=== PATIENT | female | born 1995 | race Caucasian/White ===

== ENCOUNTER 2017-01-01 21:34 | Emergency (ER) | payer OTHER ==
[~2017-01-01] VITALS: Ht 149.9 cm; Wt 79.4 kg
[~2017-01-01 21:34] MED LIST: IBUP60TA PO; LORT5TAB PO; MOTR200T44 PO; PERCOCET PO
[2017-01-01 23:41] VITALS: BP 129/66
== END 2017-01-01 23:42 | disposition home or self-care (01) ==
LOC: M ED 22:33
DX: J02.8 Acute pharyngitis due to other specified organisms (principal); F17.200 Nicotine dependence, unspecified, uncomplicated; Z88.1 Allergy status to other antibiotic agents

== ENCOUNTER 2017-05-02 09:11 | Emergency (ER) | payer OTHER ==
[~2017-05-02] VITALS: Ht 149.9 cm; Wt 84.1 kg
[2017-05-02 10:11] LABS: BASO # 0.1 K/mm3 (0.0-0.2); BASO % 1.2 % (0.0-1.0); EOS # 0.2 K/mm3 (0.0-0.50); EOS % 2.4 % (0.0-3.0); LARGE UNSTAINED CELL # 0.1 K/mm3 (0.0-0.4); LARGE UNSTAINED CELL % 1.6 % (0.0-4.0); LYMPH # 2.1 K/mm3 (1.5-6.5); LYMPH % 24.9 % (24.0-44.0); MEAN CORPUSCULAR HEMOGLOBIN 30.3 pg (27.0-33.0); MEAN CORPUSCULAR HGB CONC 34.1 g/dl (32.0-36.5); MEAN CORPUSCULAR VOLUME 88.7 fl (80.0-96.0); MONO # 0.5 K/mm3 (0.0-0.8); NEUTROPHILS # 5.1 K/mm3 (1.8-7.7); NEUTROPHILS % 63.9 % (36.0-66.0); PLATELET COUNT, AUTOMATED 266 k/mm3 (150-450); RED CELL DISTRIBUTION WIDTH 13.3 % (11.5-14.5)
[2017-05-02 10:17] LABS: CONTROL LINE HCG INT CTR LINE PRESENT
[2017-05-02] MEDS ORDERED: NS 500 ML IV ONE (11:15)
--- NOTE | 2017-05-02 12:51 | REP ---
Clinical: Early with vaginal bleeding. Technique: Transabdominal and transvaginal first trimester obstetrical ultrasound with color Doppler evaluation. Findings: Bladder measures 9.1 x 7.9 x 4.3 cm and appears normal. Normal anteverted uterus measures 11.1 x 5.1 x 5.9 cm. Endometrial complex measures 4.8 mm thickness and no intrauterine is identified. Incidental left intramural fibroid measures 1.2 x 0.9 x 1.2 cm. The bilateral maternal ovaries are normal in appearance and vascularity without torsion. Right ovary measures 2.9 x 2.1 x 1.8 cm with 1.4 cm involuting cyst; RI 0.46. Left ovary measures 2.4 x 1.7 x 2.5 cm; RI 0.66. Trace pelvic free fluid is nonspecific. Impression: Normal appearance to the uterus and endometrium (incidental 1.2 cm fibroid) without evidence for intrauterine . Differential diagnosis includes early , missed , and less likely ectopic . Correlation with serial HCG levels recommended. Signed by Freddie Liang MD 05/02/2017 12:42 P
[2017-05-02 14:45] VITALS: BP 128/74
== END 2017-05-02 14:47 | disposition home or self-care (01) ==
LOC: M ED 09:11
DX: N93.9 Abnormal uterine and vaginal bleeding, unspecified (principal); D25.9 Leiomyoma of uterus, unspecified; Z32.01 Encounter for pregnancy test, result positive

== ENCOUNTER → 2017-05-04 | Outpatient (CLI) | payer OTHER | LOC: M LAB 12:12 | PROVIDERS: ATTEND Emergency Medicine | DX: N93.9 Abnormal uterine and vaginal bleeding, unspecified (principal) ==

== ENCOUNTER 2017-06-08 10:41 | Emergency (ER) | payer OTHER ==
[~2017-06-08] VITALS: Ht 149.9 cm; Wt 80.0 kg
[2017-06-08 10:42] VITALS: BP 155/85
== END 2017-06-08 11:31 | disposition left against medical advice (07) ==
LOC: M ED 10:41
DX: K08.89 Other specified disorders of teeth and supporting structures (principal); Z53.29 Procedure and treatment not carried out because of patient's decision for other reasons

== ENCOUNTER → 2018-03-07 | Outpatient (CLI) | payer OTHER ==
[2018-03-07 19:24] LABS: BASO # 0.1 10^3/uL (0.0-0.2); BASO % 0.7 % (0.0-1.0); EOS # 0.1 10^3/uL (0.0-0.50); EOS % 1.1 % (0.0-3.0); HEMATOCRIT 35.5 % (36.0-47.0); HEMOGLOBIN 11.4 g/dl (12.0-15.5); IMMATURE GRANULOCYTE % 0.2 % (0-3.0); LYMPH # 2.1 10^3/uL (1.5-6.5); LYMPH % 21.8 % (24.0-44.0); MEAN CORPUSCULAR HEMOGLOBIN 28.4 pg (27.0-33.0); MEAN CORPUSCULAR HGB CONC 32.1 g/dl (32.0-36.5); MEAN CORPUSCULAR VOLUME 88.5 fl (80.0-96.0); MONO # 0.7 10^3/uL (0.0-0.8); MONO % 6.7 % (0.0-5.0); NEUTROPHILS # 6.7 10^3/uL (1.8-7.7); NEUTROPHILS % 69.5 % (36.0-66.0); PLATELET COUNT, AUTOMATED 270 10^3/uL (150-450); RED BLOOD COUNT 4.01 10^6/uL (4.00-5.40); RED CELL DISTRIBUTION WIDTH 15.4 % (11.5-14.5); WHITE BLOOD COUNT 9.7 10^3/uL (4.0-10.0)
[2018-03-08 12:44] LABS: CHLAMYDIA DNA AMPLIFICATION NEGATIVE (NEGATIVE); GC DNA AMPLIFICATION NEGATIVE (NEGATIVE)
[2018-03-09 10:26] LABS: RUBELLA IgG QUALITATIVE IMMUNE (IMMUNE)
[2018-03-09 10:41] LABS: HBsAg Prenatal NEGATIVE (NEGATIVE)
[2018-03-09 10:55] LABS: HEPATITIS C VIRUS ABY INDEX < 0.0 INDEX (<0.8)
[2018-03-09 10:56] LABS: HIV 1&2 SCREEN CENTAUR NEGATIVE (NEGATIVE)
== END ==
LOC: M SMT 11:31
DX: Z34.81 Encounter for supervision of other normal pregnancy, first trimester (principal); Z3A.09 9 weeks gestation of pregnancy
CPT/HCPCS: 86762

== ENCOUNTER 2018-05-07 18:58 | Emergency (ER) | payer OTHER ==
[2018-05-07] MEDS: PENICILLIN V POTASSIUM 500 MG TAB PO (19:45)
[2018-05-07] MEDS: OXYCODONE/APAP 5MG/325MG(BULK FOR ED) 1 TABLET PO (19:45)
== END 2018-05-07 19:50 | disposition home or self-care (01) ==
LOC: M ED 18:58
DX: O99.89 Other specified diseases and conditions complicating pregnancy, childbirth and the puerperium (principal); K04.7 Periapical abscess without sinus; K02.9 Dental caries, unspecified; Z88.1 Allergy status to other antibiotic agents; Z3A.00 Weeks of gestation of pregnancy not specified
CPT/HCPCS: 99283

== ENCOUNTER → 2018-05-19 | Outpatient (CLI) | payer OTHER | LOC: M RAD 10:01 | DX: Z34.82 Encounter for supervision of other normal pregnancy, second trimester (principal) | CPT/HCPCS: 76811 ==

== ENCOUNTER → 2018-06-03 | Outpatient (CLI) | payer OTHER | LOC: M SMT 12:06 | DX: O28.5 Abnormal chromosomal and genetic finding on antenatal screening of mother (principal) | CPT/HCPCS: 36415 ==

== ENCOUNTER → 2018-07-29 | Outpatient (CLI) | payer OTHER, SELFPAY ==
[2018-07-29 14:12] LABS: BASO # 0.1 10^3/uL (0.0-0.2); BASO % 0.5 % (0.0-1.0); EOS # 0.1 10^3/uL (0.0-0.50); EOS % 0.9 % (0.0-3.0); HEMATOCRIT 30.6 % (36.0-47.0); HEMOGLOBIN 10.1 g/dl (12.0-15.5); IMMATURE GRANULOCYTE % 1.4 % (0-3.0); LYMPH # 2.1 10^3/uL (1.5-6.5); LYMPH % 19.4 % (24.0-44.0); MEAN CORPUSCULAR HEMOGLOBIN 32.1 pg (27.0-33.0); MEAN CORPUSCULAR VOLUME 97.1 fl (80.0-96.0); MONO # 0.9 10^3/uL (0.0-0.8); MONO % 7.8 % (0.0-5.0); NEUTROPHILS # 7.7 10^3/uL (1.8-7.7); PLATELET COUNT, AUTOMATED 196 10^3/uL (150-450); RED BLOOD COUNT 3.15 10^6/uL (4.00-5.40)
[2018-07-29 14:19] LABS: GLUCOSE CHALLENGE TEST 1 HOUR 97 MG/DL (LESS THAN 140)
== END ==
LOC: M SMT 10:36
DX: Z34.83 Encounter for supervision of other normal pregnancy, third trimester (principal); Z36.89 Encounter for other specified antenatal screening
CPT/HCPCS: 82950

== ENCOUNTER 2018-08-07 14:24 | Outpatient (CLI) | payer OTHER ==
[2018-08-07 16:13] LABS: APPEARANCE, URINE HAZY (CLEAR); BACTERIA, URINE AUTO 2+ (NEGATIVE); BILIRUBIN, URINE AUTO NEGATIVE (NEGATIVE); BLOOD, URINE BLOOD NEGATIVE (NEGATIVE); COLOR, URINE STRAW (YELLOW); GLUCOSE, URINE (UA) AUTO NEGATIVE (NEGATIVE); KETONE, URINE AUTO TRACE mg/dL (NEGATIVE); LEUKOCYTE ESTERASE, URINE AUTO 3+ (NEGATIVE); NITRITE, URINE AUTO NEGATIVE (NEGATIVE); PROTEIN, URINE AUTO NEGATIVE (NEGATIVE); RBC, URINE AUTO 1 /HPF (0-3); SPECIFIC GRAVITY URINE AUTO 1.005 (1.002-1.035); SQUAMOUS EPITHELIAL CELL UR AU 5 /HPF (0-6); UROBILINOGEN, URINE AUTO 0.2 mg/dL (0.0-2.0); WBC, URINE AUTO 38 /HPF (0-3)
[2018-08-07] MEDS: TERCONAZOLE-7 VAGINAL CREAM PV (17:00)
[2018-08-07] MEDS: metroNIDAZOLE (FLAGYL) 500 MG TAB PO (17:06)
[2018-08-07 17:35] LABS: CHLAMYDIA DNA AMPLIFICATION NEGATIVE (NEGATIVE); GC DNA AMPLIFICATION NEGATIVE (NEGATIVE)
== END 2018-08-07 18:24 | disposition home or self-care (01) ==
LOC: M LDO 14:24
DX: O47.03 False labor before 37 completed weeks of gestation, third trimester (principal); O23.599 Infection of other part of genital tract in pregnancy, unspecified trimester; O35 Maternal care for known or suspected fetal abnormality and damage; Z3A.31 31 weeks gestation of pregnancy
CPT/HCPCS: 59025

== ENCOUNTER → 2018-09-13 | Outpatient (REF) | payer MEDICAID, OTHER, SELFPAY | LOC: M LAB REF 17:24 | DX: Z36.89 Encounter for other specified antenatal screening (principal) | CPT/HCPCS: 87081 ==

== ENCOUNTER 2018-10-03 06:35 | Inpatient (IN) | payer SELFPAY, OTHER ==
[2018-10-03] MEDS: LR 1,000 ML IV ×3 (06:45→14:45)
[2018-10-03] MEDS ORDERED: OXYTOCIN INJ 10 UNITS/ML VIAL (J2590) As Ordered ×2 (07:17)
[2018-10-03] MEDS ORDERED: MORPHINE PRES-FREE INJ 10 MG/10 ML VIAL (J2274) As Ordered (07:20)
[2018-10-03 07:26] LABS: HEMATOCRIT 30.9 % (36.0-47.0); HEMOGLOBIN 10.1 g/dl (12.0-15.5); MEAN CORPUSCULAR HEMOGLOBIN 29.7 pg (27.0-33.0); MEAN CORPUSCULAR HGB CONC 32.7 g/dl (32.0-36.5); MEAN CORPUSCULAR VOLUME 90.9 fl (80.0-96.0); PLATELET COUNT, AUTOMATED 210 10^3/uL (150-450); RED CELL DISTRIBUTION WIDTH 13.6 % (11.5-14.5); WHITE BLOOD COUNT 9.3 10^3/uL (4.0-10.0)
[2018-10-03] MEDS: BICITRA 30ML SOLN UDC PO (07:31)
[2018-10-03] MEDS ORDERED: ONDANSETRON 4MG/2ML VIAL (J2405) IV ×3 (07:45→09:45)
[2018-10-03] MEDS ORDERED: NALBUPHINE HCL 10 MG/ML AMP (J2300) IV (07:45)
[2018-10-03] MEDS ORDERED: NALOXONE INJ 0.4 MG/1 ML VIAL (J2310) IV ×2 (07:45)
[2018-10-03] MEDS ORDERED: ePHEDrine SULFATE 25 MG/5 ML(5MG/ML) SYRINGE As Ordered (07:56)
[2018-10-03] MEDS ORDERED: ONDANSETRON 4MG/2ML VIAL (J2405) As Ordered (08:17)
[2018-10-03] MEDS: DOCUSATE SODIUM 100 MG CAP PO ×2 (09:00→20:09)
[2018-10-03] MEDS: PRENATAL VITAMINS CHEWABLE TABLET PO (09:00)
[2018-10-03] MEDS ORDERED: OXYTOCIN 30 UNITS IN 0.9% NaCl 500ML IV BAG (J2590) As Ordered (09:14)
[2018-10-03] MEDS ORDERED: ANUSOL HC CREAM 30GM TOP (09:15)
[2018-10-03] MEDS ORDERED: DOCUSATE SODIUM 100 MG CAP PO (09:15)
[2018-10-03] MEDS ORDERED: MOM 30ML SUSPENSION UDC PO (09:15)
[2018-10-03] MEDS ORDERED: METOCLOPRAMIDE INJ 10MG/2ML VIAL (J2765) IV (09:45)
[2018-10-03] MEDS ORDERED: MEPERIDINE INJ 25 MG/ML VIAL (J2175) IV (09:45)
[2018-10-03] MEDS ORDERED: fentaNYL 100 MCG/2 ML INJECTION (J3010) IV (09:45)
[2018-10-03] MEDS ORDERED: NALBUPHINE HCL 10 MG/ML AMP (J2300) As Ordered (09:51)
[2018-10-03] MEDS: NALBUPHINE HCL 10 MG/ML AMP (J2300) IV (09:53)
[2018-10-03] MEDS ORDERED: KETOROLAC 30 MG/ML VIAL (J1885) As Ordered (10:17)
[2018-10-03] MEDS: KETOROLAC 30 MG/ML VIAL (J1885) IV ×3 (10:21→22:10)
[2018-10-03] MEDS: OXYTOCIN DRIP 30 UNITS in APPROPRIATE DILUENT 1 EA IV (10:29)
[2018-10-03] MEDS: MEASLES,MUMPS,RUBELLA VACCINE INJ (MMR-II) (90707) SC (11:15)
[2018-10-03] MEDS: METOCLOPRAMIDE INJ 10MG/2ML VIAL (J2765) IV ×2 (13:08→23:11)
[2018-10-04] MEDS: KETOROLAC 30 MG/ML VIAL (J1885) IV (03:46)
[2018-10-04] MEDS: LR 1,000 ML IV (04:41)
[2018-10-04 07:05] LABS: HEMATOCRIT 26.9 % (36.0-47.0); HEMOGLOBIN 8.5 g/dl (12.0-15.5); MEAN CORPUSCULAR HEMOGLOBIN 29.5 pg (27.0-33.0); MEAN CORPUSCULAR HGB CONC 31.6 g/dl (32.0-36.5); MEAN CORPUSCULAR VOLUME 93.4 fl (80.0-96.0); PLATELET COUNT, AUTOMATED 142 10^3/uL (150-450); RED BLOOD COUNT 2.88 10^6/uL (4.00-5.40); RED CELL DISTRIBUTION WIDTH 13.3 % (11.5-14.5); WHITE BLOOD COUNT 10.6 10^3/uL (4.0-10.0)
[2018-10-04] MEDS: DOCUSATE SODIUM 100 MG CAP PO ×2 (07:57→19:50)
[2018-10-04] MEDS: PRENATAL VITAMINS CHEWABLE TABLET PO (07:57)
[2018-10-04] MEDS: PERCOCET 5MG/325MG TAB PO ×3 (08:00→20:11)
[2018-10-04] MEDS: IBUPROFEN 800 MG TAB PO ×2 (11:51→19:50)
[2018-10-05] MEDS: PERCOCET 5MG/325MG TAB PO ×6 (00:13→23:14)
[2018-10-05] MEDS: IBUPROFEN 800 MG TAB PO ×3 (04:22→20:33)
[2018-10-05] MEDS: PRENATAL VITAMINS CHEWABLE TABLET PO (08:07)
[2018-10-05] MEDS: DOCUSATE SODIUM 100 MG CAP PO ×2 (08:07→20:34)
[2018-10-05] MEDS: SIMETHICONE 80 MG CHEW TAB PO ×4 (08:07→20:34)
[2018-10-05] MEDS ORDERED: PILL CRUSHER/CUTTER 1 EACH XX (20:45)
[2018-10-06] MEDS: IBUPROFEN 800 MG TAB PO ×3 (03:59→19:37)
[2018-10-06] MEDS: PERCOCET 5MG/325MG TAB PO ×3 (07:31→21:22)
[2018-10-06] MEDS: SIMETHICONE 80 MG CHEW TAB PO ×3 (08:19→19:37)
[2018-10-06] MEDS: PRENATAL VITAMINS CHEWABLE TABLET PO (08:19)
[2018-10-06] MEDS: DOCUSATE SODIUM 100 MG CAP PO ×2 (08:19→19:36)
[2018-10-06] MEDS ORDERED: DOCUSATE SODIUM 100 MG CAP PO (19:00)
[2018-10-06] MEDS ORDERED: ANUSOL HC CREAM 30GM TOP (19:00)
[2018-10-06] MEDS ORDERED: MOM 30ML SUSPENSION UDC PO (19:00)
[2018-10-06] MEDS ORDERED: PERCOCET 5MG/325MG TAB PO (19:00)
[2018-10-06] MEDS ORDERED: MEASLES,MUMPS,RUBELLA VACCINE INJ (MMR-II) (90707) SC (19:00)
[2018-10-06] MEDS ORDERED: PILL CRUSHER/CUTTER 1 EACH XX (19:00)
[2018-10-06] MEDS ORDERED: ONDANSETRON 4MG/2ML VIAL (J2405) IV (19:00)
[2018-10-07] MEDS: IBUPROFEN 800 MG TAB PO ×2 (03:21→09:50)
[2018-10-07] MEDS: PRENATAL VITAMINS CHEWABLE TABLET PO (09:50)
[2018-10-07] MEDS: SIMETHICONE 80 MG CHEW TAB PO (09:50)
[2018-10-07] MEDS: DOCUSATE SODIUM 100 MG CAP PO (09:50)
== END 2018-10-07 09:50 | disposition home or self-care (01) | DRG 540 ==
LOC: M LDI 06:35 → M OBS 11:09
PROVIDERS: Obstetrics & Gynecology
PROC: 10D00Z1 Extraction of Products of Conception, Low, Open Approach (ICD-10-PCS; principal; 2018-10-03 07:30)
DX: O34.211 Maternal care for low transverse scar from previous cesarean delivery (principal); Z37.0 Single live birth; Z3A.39 39 weeks gestation of pregnancy

== ENCOUNTER 2019-03-19 21:13 | Emergency (ER) | payer MEDICAID ==
[~2019-03-19] VITALS: Ht 149.9 cm; Wt 80.9 kg
[2019-03-19 21:13] VITALS: BP 141/85
[~2019-03-19 21:13] MED LIST changes: +COLA100C5 PO; +IBUP600T42 PO; -IBUP60TA PO; +IBUP80TA PO; +OXYC1TAB23 PO; +PENI500T PO; +PERC5TAB12 PO; +PRENTAB45 PO; +TYLE500T78 PO
[2019-03-19] MEDS ORDERED: MOBI4TAB PO (22:38)
[2019-03-19] MEDS ORDERED: KETOROLAC TROMETHAMINE 10 MG TAB PO ONE (22:45)
--- NOTE | 2019-03-20 09:00 | REP ---
Clinical: Trauma. Technique: AP, lateral, bilateral oblique views right wrist. Findings: The carpal bones, surrounding osseous structures, soft tissues, and joint spaces are normal. There is no evidence for acute fracture or dislocation. No subcutaneous emphysema or radiodense foreign body. Impression: Normal wrist series. No acute fracture or dislocation Electronically Signed by Freddie Liang MD 03/20/2019 08:52 A
== END 2019-03-19 22:57 | disposition home or self-care (01) ==
LOC: M ED 21:13
DX: M77.8 Other enthesopathies, not elsewhere classified (principal); Z88.1 Allergy status to other antibiotic agents

== ENCOUNTER → 2019-06-07 | Outpatient (REF) | payer MEDICAID, MEDICARE ==
[~2019-06-07] MED LIST changes: +MOBI4TAB PO
[2019-06-07 14:56] LABS: BASO # 0.1 10^3/uL (0.0-0.2); EOS # 0.2 10^3/uL (0.0-0.50); EOS % 2.7 % (0.0-3.0); HEMATOCRIT 35.1 % (36.0-47.0); LYMPH # 2.5 10^3/uL (1.5-6.5); LYMPH % 35.9 % (24.0-44.0); MEAN CORPUSCULAR HEMOGLOBIN 27.2 pg (27.0-33.0); MEAN CORPUSCULAR HGB CONC 31.3 g/dl (32.0-36.5); MEAN CORPUSCULAR VOLUME 86.9 fl (80.0-96.0); MONO # 0.6 10^3/uL (0.0-0.8); MONO % 8.5 % (0.0-5.0); NEUTROPHILS # 3.6 10^3/uL (1.8-7.7); NEUTROPHILS % 51.6 % (36.0-66.0); PLATELET COUNT, AUTOMATED 313 10^3/uL (150-450); RED BLOOD COUNT 4.04 10^6/uL (4.00-5.40)
[2019-06-07 15:08] LABS: ALBUMIN 3.4 GM/DL (3.2-5.2); ALT/SGPT 17 U/L (12-78); BILIRUBIN,TOTAL 0.2 MG/DL (0.2-1.0); BLOOD UREA NITROGEN 9 MG/DL (7-18); CALCIUM LEVEL 8.4 MG/DL (8.5-10.1); CARBON DIOXIDE LEVEL 23 MEQ/L (21-32); CHLORIDE LEVEL 108 MEQ/L (98-107); CHOLESTEROL LEVEL 207 MG/DL (<200); CHOLESTEROL RISK RATIO 5.175 (<5); FERRITIN 4 NG/ML (8-252); FREE T4 0.81 NG/DL (0.76-1.46); GLOMERULAR FILTRATION RATE > 60.0 (>60); GLUCOSE, FASTING 90 MG/DL (70-100); HDL CHOLESTEROL 40 MG/DL (>40); IRON (FE) 29 UG/DL (50-170); LDL CHOLESTEROL 138 MG/DL (<100); NON-HDL-C 167 MG/DL; POTASSIUM SERUM 4.2 MEQ/L (3.5-5.1); SODIUM LEVEL 140 MEQ/L (136-145); THYROID STIMULATING HORMONE 0.819 uIU/ML (0.358-3.740); TOTAL PROTEIN 6.4 GM/DL (6.4-8.2); TRIGLYCERIDES LEVEL 145 MG/DL (<150)
[2019-06-07 15:37] LABS: HEMOGLOBIN A1c 5.5 %
== END ==
LOC: M LAB REF 12:19
PROVIDERS: ATTEND Nurse Practitioner Family
DX: Z00.00 Encounter for general adult medical examination without abnormal findings (principal); Z83.2 Family history of diseases of the blood and blood-forming organs and certain disorders involving the immune mechanism

== ENCOUNTER 2019-07-23 23:04 | Emergency (ER) | payer MEDICAID, MEDICARE, OTHER ==
[~2019-07-23] VITALS: Ht 149.9 cm; Wt 83.2 kg
[2019-07-23 23:04] VITALS: BP 144/88
[2019-07-23] MEDS ORDERED: PYRI1TAB5 PO (23:30)
[2019-07-23] MEDS ORDERED: PHENAZOPYRIDINE 100 MG TAB PO ONE (23:30)
[2019-07-23] MEDS ORDERED: NITROFURANTOIN (MACROBID) 100 MG CAP PO ONE (23:30)
[2019-07-23] MEDS ORDERED: MACR100C43 PO (23:30)
== END 2019-07-23 23:38 | disposition home or self-care (01) ==
LOC: M ED 23:04
DX: N30.00 Acute cystitis without hematuria (principal); Z88.0 Allergy status to penicillin

== ENCOUNTER 2019-11-22 10:03 | Emergency (ER) | payer MEDICAID, OTHER ==
[~2019-11-22] VITALS: Ht 149.9 cm; Wt 82.0 kg
[~2019-11-22 10:03] MED LIST changes: +MACR100C43 PO; +PYRI1TAB5 PO
[2019-11-22] MEDS ORDERED: ACET-683 PO (10:10)
[2019-11-22] MEDS ORDERED: LIDOCAINE 5% (LIDODERM) PATCH TD ONE (10:30)
[2019-11-22] MEDS ORDERED: ACETAMINOPHEN 500 MG TAB PO ONE (10:30)
[2019-11-22] MEDS ORDERED: CYCLOBENZAPRINE 10 MG TAB PO ONE (10:30)
[2019-11-22] MEDS ORDERED: IBUPROFEN 800 MG TAB PO ONE (10:30)
[2019-11-22] MEDS ORDERED: CYCL10TA PO (11:53)
[2019-11-22 12:04] VITALS: BP 135/71
[2019-11-22] MEDS ORDERED: LIDO5TD TOP (12:18)
[2019-11-22] MEDS ORDERED: **NOTE PATIENT COMMENT** MISC XX SCH (21:00)
== END 2019-11-22 12:23 | disposition home or self-care (01) ==
LOC: M ED 10:03
DX: S29.012A Strain of muscle and tendon of back wall of thorax, initial encounter (principal); W18.2XXA Fall in (into) shower or empty bathtub, initial encounter; Y92.091 Bathroom in other non-institutional residence as the place of occurrence of the external cause; Z88.1 Allergy status to other antibiotic agents

== ENCOUNTER 2019-12-17 22:02 | Emergency (ER) | payer OTHER ==
[~2019-12-17] VITALS: Ht 149.9 cm; Wt 82.2 kg
[~2019-12-17 22:02] MED LIST changes: +ACET-683 PO; +CYCL10TA PO; +LIDO5TD TOP
[2019-12-17 22:36] LABS: URINE PREG TEST NEGATIVE (NEGATIVE)
[2019-12-17 22:41] LABS: APPEARANCE, URINE HAZY (CLEAR); BACTERIA, URINE AUTO NEGATIVE (NEGATIVE); BILIRUBIN, URINE AUTO NEGATIVE (NEGATIVE); BLOOD, URINE BLOOD NEGATIVE (NEGATIVE); COLOR, URINE YELLOW (YELLOW); GLUCOSE, URINE (UA) AUTO NEGATIVE (NEGATIVE); KETONE, URINE AUTO NEGATIVE (NEGATIVE); LEUKOCYTE ESTERASE, URINE AUTO 1+ (NEGATIVE); MUCUS, URINE SMALL (NEGATIVE); NITRITE, URINE AUTO NEGATIVE (NEGATIVE); PROTEIN, URINE AUTO NEGATIVE (NEGATIVE); RBC, URINE AUTO 1 /HPF (0-3); SPECIFIC GRAVITY URINE AUTO 1.018 (1.002-1.035); SQUAMOUS EPITHELIAL CELL UR AU 4 /HPF (0-6); UROBILINOGEN, URINE AUTO 0.2 mg/dL (0.0-2.0); WBC, URINE AUTO 4 /HPF (0-3)
[2019-12-18 00:14] LABS: CHLAMYDIA DNA AMPLIFICATION POSITIVE (NEGATIVE); GC DNA AMPLIFICATION NEGATIVE (NEGATIVE)
[2019-12-18] MEDS ORDERED: DOXY100C37 PO (01:21)
[2019-12-18] MEDS ORDERED: DOXYCYCLINE HYCLATE 100 MG TAB PO ONE (01:30)
[2019-12-18 01:31] VITALS: BP 128/80
[2019-12-18 10:14] LABS: HEPATITIS B SURFACE ANTIBODY NEGATIVE (POSITIVE); HEPATITIS B SURFACE ANTIGEN NEGATIVE (NEGATIVE); HEPATITIS C VIRUS ABY INDEX < 0.0 INDEX (<0.8); HIV 1&2 SCREEN CENTAUR NEGATIVE (NEGATIVE)
[2019-12-21 08:06] LABS: HSV-1 DNA Negative (Negative); HSV-2 DNA Negative (Negative)
== END 2019-12-18 01:46 | disposition home or self-care (01) ==
LOC: M ED 22:02
DX: Z20.2 Contact with and (suspected) exposure to infections with a predominantly sexual mode of transmission (principal); A56.8 Sexually transmitted chlamydial infection of other sites; Z88.1 Allergy status to other antibiotic agents

== ENCOUNTER → 2020-04-18 | Outpatient (REF) | payer OTHER ==
[~2020-04-18] MED LIST changes: +CYCL-707 PO; -CYCL10TA PO; +DOXY100C37 PO
[2020-04-18 13:42] LABS: BASO # 0.1 10^3/uL (0.0-0.2); BASO % 0.9 % (0.0-1.0); EOS # 0.2 10^3/uL (0.0-0.5); EOS % 2.2 % (0.0-3.0); HEMATOCRIT 34.7 % (36.0-47.0); HEMOGLOBIN 10.9 g/dl (12.0-15.5); LYMPH % 29.8 % (24.0-44.0); MEAN CORPUSCULAR HEMOGLOBIN 27.9 pg (27.0-33.0); MEAN CORPUSCULAR HGB CONC 31.4 g/dl (32.0-36.5); MONO # 0.6 10^3/uL (0.0-0.8); MONO % 8.7 % (0.0-5.0); PLATELET COUNT, AUTOMATED 277 10^3/uL (150-450); WHITE BLOOD COUNT 6.8 10^3/uL (4.0-10.0)
[2020-04-18 13:57] LABS: ALBUMIN 3.4 GM/DL (3.2-5.2); ALT/SGPT 15 U/L (12-78); BILIRUBIN,TOTAL 0.3 MG/DL (0.2-1.0); BLOOD UREA NITROGEN 10 MG/DL (7-18); CALCIUM LEVEL 8.4 MG/DL (8.5-10.1); CARBON DIOXIDE LEVEL 25 MEQ/L (21-32); CHLORIDE LEVEL 109 MEQ/L (98-107); CHOLESTEROL LEVEL 214 MG/DL (<200); CREATININE FOR GFR 0.66 MG/DL (0.55-1.30); FREE T4 0.93 NG/DL (0.76-1.46); GLOMERULAR FILTRATION RATE > 60.0 (>60); GLUCOSE, FASTING 88 MG/DL (70-100); HDL CHOLESTEROL 40 MG/DL (>40); LDL CHOLESTEROL 150 MG/DL (<100); NON-HDL-C 174 MG/DL; POTASSIUM SERUM 4.1 MEQ/L (3.5-5.1); SODIUM LEVEL 141 MEQ/L (136-145); THYROID STIMULATING HORMONE 0.989 uIU/ML (0.358-3.740); TOTAL PROTEIN 6.7 GM/DL (6.4-8.2); TRIGLYCERIDES LEVEL 122 MG/DL (<150)
[2020-04-18 13:58] LABS: TOTAL 25(OH) VITAMIN D 25.8 NG/ML (30.0-100.0)
[2020-04-18 15:26] LABS: HEMOGLOBIN A1c 5.1 %
== END ==
LOC: M LAB REF 13:25
PROVIDERS: ATTEND Nurse Practitioner Family
DX: Z13.9 Encounter for screening, unspecified (principal); F41.8 Other specified anxiety disorders; G43.909 Migraine, unspecified, not intractable, without status migrainosus; D50.9 Iron deficiency anemia, unspecified

== ENCOUNTER → 2020-04-22 | Outpatient (REF) | payer OTHER ==
[2020-04-22 16:46] LABS: BASO # 0.1 10^3/uL (0.0-0.2); BASO % 0.9 % (0.0-1.0); EOS # 0.1 10^3/uL (0.0-0.5); EOS % 1.4 % (0.0-3.0); HEMATOCRIT 35.3 % (36.0-47.0); HEMOGLOBIN 11.1 g/dl (12.0-15.5); LYMPH % 31.4 % (24.0-44.0); MEAN CORPUSCULAR HGB CONC 31.4 g/dl (32.0-36.5); MEAN CORPUSCULAR VOLUME 89.1 fl (80.0-96.0); MONO # 0.6 10^3/uL (0.0-0.8); MONO % 8.6 % (0.0-5.0); NEUTROPHILS # 3.7 10^3/uL (1.5-8.5); NEUTROPHILS % 57.4 % (36.0-66.0); PLATELET COUNT, AUTOMATED 319 10^3/uL (150-450); RED BLOOD COUNT 3.96 10^6/uL (4.00-5.40); WHITE BLOOD COUNT 6.4 10^3/uL (4.0-10.0)
[2020-04-22 16:59] LABS: FOLATE 16.5 NG/ML (>5.4)
== END ==
LOC: M LAB REF 16:21
PROVIDERS: ATTEND Nurse Practitioner Family
DX: Z13.9 Encounter for screening, unspecified (principal); D50.9 Iron deficiency anemia, unspecified; D64.89 Other specified anemias

== ENCOUNTER → 2020-07-15 | Outpatient (REF) | payer OTHER, MEDICAID ==
[~2020-07-15] MED LIST changes: +FERR1TAB8 PO; +FLUO20CA22 PO
[2020-07-15 13:46] LABS: BASO # 0.1 10^3/uL (0.0-0.2); BASO % 1.2 % (0.0-1.0); EOS # 0.1 10^3/uL (0.0-0.5); EOS % 1.7 % (0.0-3.0); HEMATOCRIT 35.9 % (36.0-47.0); HEMOGLOBIN 11.5 g/dl (12.0-15.5); LYMPH # 1.9 10^3/uL (1.5-5.0); LYMPH % 26.9 % (24.0-44.0); MEAN CORPUSCULAR VOLUME 90.4 fl (80.0-96.0); MONO # 0.7 10^3/uL (0.0-0.8); MONO % 9.7 % (0.0-5.0); NEUTROPHILS # 4.2 10^3/uL (1.5-8.5); NEUTROPHILS % 60.2 % (36.0-66.0); PLATELET COUNT, AUTOMATED 288 10^3/uL (150-450); RED BLOOD COUNT 3.97 10^6/uL (4.00-5.40); WHITE BLOOD COUNT 6.9 10^3/uL (4.0-10.0)
[2020-07-15 14:34] LABS: ALBUMIN 3.4 GM/DL (3.2-5.2); ALT/SGPT 16 U/L (12-78); BILIRUBIN,TOTAL 0.4 MG/DL (0.2-1.0); BLOOD UREA NITROGEN 12 MG/DL (7-18); CALCIUM LEVEL 8.4 MG/DL (8.5-10.1); CARBON DIOXIDE LEVEL 25 MEQ/L (21-32); CHLORIDE LEVEL 108 MEQ/L (98-107); CHOLESTEROL LEVEL 225 MG/DL (<200); CHOLESTEROL RISK RATIO 5.113 (<5); CREATININE FOR GFR 0.59 MG/DL (0.55-1.30); FERRITIN 6 NG/ML (8-252); GLOMERULAR FILTRATION RATE > 60.0 (>60); GLUCOSE, FASTING 85 MG/DL (70-100); HDL CHOLESTEROL 44 MG/DL (>40); IRON (FE) 49 UG/DL (50-170); LDL CHOLESTEROL 163 MG/DL (<100); NON-HDL-C 181 MG/DL; POTASSIUM SERUM 4.1 MEQ/L (3.5-5.1); SODIUM LEVEL 137 MEQ/L (136-145); TOTAL PROTEIN 6.6 GM/DL (6.4-8.2); TRIGLYCERIDES LEVEL 91 MG/DL (<150)
== END ==
LOC: M LAB REF 12:48
PROVIDERS: ATTEND Nurse Practitioner Family
DX: D64.89 Other specified anemias (principal); Z13.9 Encounter for screening, unspecified; F41.8 Other specified anxiety disorders; D50.9 Iron deficiency anemia, unspecified; E78.5 Hyperlipidemia, unspecified

== ENCOUNTER 2020-09-04 16:00 | Emergency (ER) | payer OTHER, MEDICAID ==
[~2020-09-04] VITALS: Ht 149.9 cm; Wt 86.8 kg
[~2020-09-04 16:00] MED LIST changes: -FERR1TAB8 PO; -FLUO20CA22 PO
[2020-09-04] MEDS ORDERED: FERR1TAB8 PO (16:14)
[2020-09-04] MEDS ORDERED: FLUO20CA22 PO (16:14)
--- NOTE | 2020-09-04 18:12 | REPVR ---
PROCEDURE INFORMATION: Exam: US Duplex Right Lower Extremity Veins, Limited Exam date and time: 09/04/2020 5:53 PM Age: 25 years old Clinical indication: Pain; Leg, upper; Right; Additional info: Pain with walking R/O dvt TECHNIQUE: Imaging protocol: Real-time Duplex ultrasound of the Right Lower Extremity with 2-D bates scale, color Doppler flow and spectral waveform analysis with image documentation. Limited exam was focused on the right lower extremity veins. COMPARISON: No relevant prior studies available. FINDINGS: Right deep veins: Unremarkable. The common femoral, femoral and popliteal veins are patent without thrombus. Normal Doppler waveforms. Normal compressibility and/or augmentation response. Right superficial veins: Unremarkable. Saphenofemoral junction is patent without thrombus. Soft tissues: Unremarkable. IMPRESSION: No sonographic evidence of deep vein thrombosis. Electronically signed by: Petey Plascencia On 09/04/2020 18:12:26 PM
[2020-09-04 18:22] VITALS: BP 137/83
== END 2020-09-04 18:23 | disposition home or self-care (01) ==
LOC: M ED 16:00
DX: M79.604 Pain in right leg (principal); F17.210 Nicotine dependence, cigarettes, uncomplicated; Z88.1 Allergy status to other antibiotic agents; Z79.899 Other long term (current) drug therapy

== ENCOUNTER → 2020-11-15 | Outpatient (REF) | payer OTHER, MEDICAID ==
[~2020-11-15] MED LIST changes: +FERR1TAB8 PO; +FLUO20CA22 PO
[2020-11-15 12:23] LABS: BASO # 0.1 10^3/uL (0.0-0.2); BASO % 0.8 % (0.0-1.0); EOS # 0.1 10^3/uL (0.0-0.5); EOS % 1.3 % (0.0-3.0); HEMATOCRIT 35.7 % (36.0-47.0); HEMOGLOBIN 11.7 g/dl (12.0-15.5); LYMPH # 2.7 10^3/uL (1.5-5.0); LYMPH % 27.7 % (24.0-44.0); MEAN CORPUSCULAR HEMOGLOBIN 29.6 pg (27.0-33.0); MEAN CORPUSCULAR HGB CONC 32.8 g/dl (32.0-36.5); MEAN CORPUSCULAR VOLUME 90.4 fl (80.0-96.0); MONO # 0.9 10^3/uL (0.0-0.8); NEUTROPHILS # 5.9 10^3/uL (1.5-8.5); NEUTROPHILS % 60.9 % (36.0-66.0); PLATELET COUNT, AUTOMATED 325 10^3/uL (150-450); RED BLOOD COUNT 3.95 10^6/uL (4.00-5.40); WHITE BLOOD COUNT 9.7 10^3/uL (4.0-10.0)
[2020-11-15 12:57] LABS: ALBUMIN 3.4 GM/DL (3.2-5.2); ALT/SGPT 15 U/L (12-78); BILIRUBIN,TOTAL 0.4 MG/DL (0.2-1.0); BLOOD UREA NITROGEN 9 MG/DL (7-18); CALCIUM LEVEL 8.5 MG/DL (8.5-10.1); CARBON DIOXIDE LEVEL 26 MEQ/L (21-32); CHLORIDE LEVEL 106 MEQ/L (98-107); CHOLESTEROL LEVEL 237 MG/DL (<200); CHOLESTEROL RISK RATIO 5.386 (<5); CREATININE FOR GFR 0.63 MG/DL (0.55-1.30); FERRITIN 9 NG/ML (8-252); GLOMERULAR FILTRATION RATE > 60.0 (>60); GLUCOSE, FASTING 84 MG/DL (70-100); HDL CHOLESTEROL 44 MG/DL (>40); IRON (FE) 49 UG/DL (50-170); LDL CHOLESTEROL 171 MG/DL (<100); NON-HDL-C 193 MG/DL; POTASSIUM SERUM 4.1 MEQ/L (3.5-5.1); SODIUM LEVEL 138 MEQ/L (136-145); TOTAL PROTEIN 6.7 GM/DL (6.4-8.2); TRIGLYCERIDES LEVEL 112 MG/DL (<150)
== END ==
LOC: M LAB REF 11:14
PROVIDERS: ATTEND Nurse Practitioner Family
DX: Z00.01 Encounter for general adult medical examination with abnormal findings (principal); D64.89 Other specified anemias; F41.8 Other specified anxiety disorders; E78.5 Hyperlipidemia, unspecified

== ENCOUNTER 2021-11-29 17:25 | Emergency (ER) | payer MEDICAID, OTHER ==
[~2021-11-29] VITALS: Ht 149.9 cm; Wt 88.6 kg
[~2021-11-29 17:25] MED LIST changes: +DOXY-443 PO; -DOXY100C37 PO
[2021-11-29] MEDS ORDERED: ALBUTEROL 90 MCG/ACT 8GM HFA INHALER INH ONE (19:50)
[2021-11-29] MEDS ORDERED: methylPREDNISolone 125MG 2ML VIAL IV ONE (19:50)
[2021-11-29 21:47] LABS: BASO # 0.2 10^3/uL (0.0-0.2); EOS # 1.6 10^3/uL (0.0-0.5); HEMATOCRIT 38.9 % (36.0-47.0); HEMOGLOBIN 12.9 g/dl (12.0-15.5); LYMPH # 3.6 10^3/uL (1.5-5.0); LYMPH % 22.2 % (24.0-44.0); MEAN CORPUSCULAR HEMOGLOBIN 29.3 pg (27.0-33.0); MEAN CORPUSCULAR HGB CONC 33.2 g/dl (32.0-36.5); MEAN CORPUSCULAR VOLUME 88.4 fl (80.0-96.0); MONO # 0.9 10^3/uL (0.0-0.8); MONO % 5.3 % (2.0-8.0); NEUTROPHILS % 61.1 % (36.0-66.0); PLATELET COUNT, AUTOMATED 367 10^3/uL (150-450); WHITE BLOOD COUNT 16.3 10^3/uL (4.0-10.0)
[2021-11-29] MEDS ORDERED: ISOVUE-370 76% 100ML VIAL As Ordered ONE (22:02)
[2021-11-29 22:21] LABS: ALBUMIN 3.7 GM/DL (3.2-5.2); ALT/SGPT 20 U/L (12-78); BILIRUBIN,DIRECT < 0.1 MG/DL (0.0-0.2); BILIRUBIN,TOTAL 0.4 MG/DL (0.2-1.0); NT-PRO BNP < 5 PG/ML (<125); THYROXINE (T4) 9.6 UG/DL (4.5-12.0); TOTAL PROTEIN 7.3 GM/DL (6.4-8.2)
[2021-11-29] MEDS ORDERED: PROAAER10 INH (23:54)
[2021-11-29] MEDS ORDERED: PRED20TA PO (23:54)
[2021-11-29] MEDS ORDERED: BENZ200C70 PO (23:54)
[2021-11-30 00:06] VITALS: BP 141/69
== END 2021-11-30 00:14 | disposition home or self-care (01) ==
LOC: M ED 17:25
DX: R07.89 Other chest pain (principal); R05.9 Cough, unspecified; R06.02 Shortness of breath; D72.829 Elevated white blood cell count, unspecified; Z86.16 Personal history of COVID-19; F17.200 Nicotine dependence, unspecified, uncomplicated; Z88.1 Allergy status to other antibiotic agents; Z79.899 Other long term (current) drug therapy
CPT/HCPCS: 71275; 80047; 80076; 83880; 84436; 84443; 84702; 85025; 87040; 94640; 96374; 99284; J2930; Q9967

== ENCOUNTER → 2022-11-17 | Outpatient (REF) | payer OTHER ==
[~2022-11-17] MED LIST changes: +BENZ200C70 PO; +PRED20TA PO; +PROAAER10 INH
[2022-11-17 13:10] LABS: CHOLESTEROL RISK RATIO 5.34 (<5); HDL CHOLESTEROL 40.2 MG/DL (>40); LDL CHOLESTEROL 158.6 MG/DL (<100)
== END ==
LOC: M LAB REF 11:36
PROVIDERS: ATTEND Nurse Practitioner Family
DX: E78.5 Hyperlipidemia, unspecified (principal)

== ENCOUNTER → 2023-12-09 | Outpatient (REF) | payer OTHER, MEDICAID ==
[2023-12-09 12:33] LABS: BASO # 0.1 10^3/uL (0.0-0.2); EOS # 0.2 10^3/uL (0.0-0.5); EOS % 2.2 % (0.0-3.0); HEMATOCRIT 29.3 % (36.0-47.0); HEMOGLOBIN 8.6 g/dl (12.0-15.5); LYMPH # 1.8 10^3/uL (1.5-5.0); LYMPH % 26.2 % (24.0-44.0); MEAN CORPUSCULAR HEMOGLOBIN 22.2 pg (27.0-33.0); MEAN CORPUSCULAR HGB CONC 29.4 g/dl (32.0-36.5); MEAN CORPUSCULAR VOLUME 75.7 fl (80.0-96.0); MONO # 0.5 10^3/uL (0.0-0.8); NEUTROPHILS # 4.2 10^3/uL (1.5-8.5); NEUTROPHILS % 62.5 % (36.0-66.0); PLATELET COUNT, AUTOMATED 403 10^3/uL (150-450); RED BLOOD COUNT 3.87 10^6/uL (4.00-5.40); WHITE BLOOD COUNT 6.8 10^3/uL (4.0-10.0)
[2023-12-09 12:44] LABS: THYROID STIMULATING HORMONE 1.715 uIU/ML (0.55-4.78); TOTAL 25(OH) VITAMIN D 12.1 NG/ML (20.0-100.0)
[2023-12-09 12:46] LABS: ALBUMIN 3.4 G/DL (3.2-5.2); ALKALINE PHOSPHATASE 49 U/L (46-116); ALT/SGPT 12 U/L (7.0-40); AST/SGOT 8 U/L (<34); BILIRUBIN,TOTAL 0.4 MG/DL (0.3-1.2); BLOOD UREA NITROGEN 9 MG/DL (9-23); CALCIUM LEVEL 8.2 MG/DL (8.5-10.1); CARBON DIOXIDE LEVEL 25 MMOL/L (20-31); CHLORIDE LEVEL 109 MMOL/L (98-107); CHOLESTEROL LEVEL 222 MG/DL (<200); CHOLESTEROL RISK RATIO 5.29 (<5); CREATININE FOR GFR 0.59 MG/DL (0.55-1.30); GLOMERULAR FILTRATION RATE > 60.0 (>60); GLUCOSE, FASTING 92 MG/DL (60-100); HDL CHOLESTEROL 41.9 MG/DL (>40); LDL CHOLESTEROL 163.9 MG/DL (<100); MAGNESIUM LEVEL 1.8 MG/DL (1.8-2.4); NON-HDL-C 180.1 MG/DL; POTASSIUM SERUM 4.4 MMOL/L (3.5-5.1); SODIUM LEVEL 138 MMOL/L (136-145); TOTAL PROTEIN 6.4 G/DL (5.7-8.2); TRIGLYCERIDES LEVEL 81 MG/DL (<150)
[2023-12-09 13:12] LABS: HEMOGLOBIN A1c 5.1 % (4.0-6.0)
== END ==
LOC: M LAB REF 11:45
PROVIDERS: ATTEND Nurse Practitioner Family
DX: E66.01 Morbid (severe) obesity due to excess calories (principal); E55.9 Vitamin D deficiency, unspecified

== ENCOUNTER 2024-02-01 12:23 | Emergency (ER) | payer OTHER ==
[~2024-02-01] VITALS: Ht 149.9 cm; Wt 84.7 kg
[2024-02-01 13:07] LABS: BASO % 0.4 % (0.0-1.0); EOS # 0.1 10^3/uL (0.0-0.5); EOS % 1.2 % (0.0-3.0); HEMATOCRIT 27.7 % (36.0-47.0); HEMOGLOBIN 8.1 g/dl (12.0-15.5); LYMPH # 2.5 10^3/uL (1.5-5.0); LYMPH % 27.4 % (24.0-44.0); MEAN CORPUSCULAR HEMOGLOBIN 22.3 pg (27.0-33.0); MEAN CORPUSCULAR HGB CONC 29.2 g/dl (32.0-36.5); MEAN CORPUSCULAR VOLUME 76.3 fl (80.0-96.0); MONO # 0.4 10^3/uL (0.0-0.8); MONO % 4.2 % (2.0-8.0); NEUTROPHILS # 6.1 10^3/uL (1.5-8.5); NEUTROPHILS % 66.4 % (36.0-66.0); PLATELET COUNT, AUTOMATED 323 10^3/uL (150-450); RED BLOOD COUNT 3.63 10^6/uL (4.00-5.40); WHITE BLOOD COUNT 9.2 10^3/uL (4.0-10.0)
[2024-02-01 13:23] LABS: LIPASE 28 U/L (12-53)
[2024-02-01 13:25] LABS: ALBUMIN 3.1 G/DL (3.2-5.2); ALKALINE PHOSPHATASE 59 U/L (46-116); ALT/SGPT 11 U/L (7.0-40); AST/SGOT 10 U/L (<34); BILIRUBIN,DIRECT < 0.1 MG/DL (<0.4); BILIRUBIN,TOTAL 0.2 MG/DL (0.3-1.2); BLOOD UREA NITROGEN 8 MG/DL (9-23); CALCIUM LEVEL 8.5 MG/DL (8.5-10.1); CARBON DIOXIDE LEVEL 24 MMOL/L (20-31); CHLORIDE LEVEL 104 MMOL/L (98-107); CREATININE FOR GFR 0.48 MG/DL (0.55-1.30); GLOMERULAR FILTRATION RATE > 60.0 (>60); GLUCOSE, FASTING 116 MG/DL (60-100); SODIUM LEVEL 137 MMOL/L (136-145); TOTAL PROTEIN 6.3 G/DL (5.7-8.2)
[2024-02-01 14:43] LABS: HCG, SERUM QUANTITATIVE 220494.2 MIU/ML (<4.2)
[2024-02-01 17:20] VITALS: BP 141/89; TEMP 97.7; O2SAT 100
== END 2024-02-01 17:23 | disposition home or self-care (01) ==
LOC: M ED 12:23
DX: O26.899 Other specified pregnancy related conditions, unspecified trimester (principal); Z3A.08 8 weeks gestation of pregnancy; Z88.1 Allergy status to other antibiotic agents

== ENCOUNTER → 2024-02-21 | Outpatient (CLI) | payer OTHER ==
[2024-02-21 13:04] LABS: HEMATOCRIT 31.3 % (36.0-47.0); HEMOGLOBIN 9.2 g/dl (12.0-15.5); MEAN CORPUSCULAR HEMOGLOBIN 23.5 pg (27.0-33.0); MEAN CORPUSCULAR HGB CONC 29.4 g/dl (32.0-36.5); MEAN CORPUSCULAR VOLUME 79.8 fl (80.0-96.0); PLATELET COUNT, AUTOMATED 329 10^3/uL (150-450); RED BLOOD COUNT 3.92 10^6/uL (4.00-5.40); WHITE BLOOD COUNT 8.9 10^3/uL (4.0-10.0)
[2024-02-21 14:02] LABS: HIV 1&2 SCREEN NEGATIVE (NEGATIVE)
[2024-02-21 14:10] LABS: HEPATITIS C VIRUS ABY INDEX < 0.02 INDEX (<0.8)
[2024-02-21 14:17] LABS: GC DNA AMPLIFICATION NEGATIVE (NEGATIVE)
== END ==
LOC: M PLALAB 10:28
PROVIDERS: ATTEND Advanced Practice Midwife
DX: Z34.80 Encounter for supervision of other normal pregnancy, unspecified trimester (principal)

== ENCOUNTER → 2024-03-01 | Outpatient (REF) | payer OTHER ==
[~2024-03-01] MED LIST changes: +DOXY-323 PO; -DOXY-443 PO
[2024-03-01 15:32] LABS: CHOLESTEROL LEVEL 242 MG/DL (<200); CHOLESTEROL RISK RATIO 4.32 (<5); HDL CHOLESTEROL 55.9 MG/DL (>40); IRON (FE) 19 UG/DL (50-170); LDL CHOLESTEROL 151.9 MG/DL (<100); NON-HDL-C 186.1 MG/DL; PERCENT SATURATION 5.1 % (13.2-45.0); TOTAL IRON BINDING CAPACITY 372 UG/DL (250-425); TRIGLYCERIDES LEVEL 171 MG/DL (<150)
[2024-03-01 15:33] LABS: FERRITIN 22.5 NG/ML (7.3-270.7); FOLATE > 24.00 NG/ML (>5.4); VITAMIN B12 LEVEL 284 PG/ML (211-911)
== END ==
LOC: M LAB REF 13:22
PROVIDERS: ATTEND Nurse Practitioner Family
DX: D50.9 Iron deficiency anemia, unspecified (principal); E78.5 Hyperlipidemia, unspecified

== ENCOUNTER 2024-03-03 15:09 | Emergency (ER) | payer OTHER ==
[~2024-03-03] VITALS: Ht 149.9 cm; Wt 84.0 kg
[~2024-03-03 15:09] MED LIST changes: -ERGO500029; -FERR325T19; +FLUO-365 PO; -FLUO1TAB; -FLUO20CA22 PO; -MIRA3350; -PNV1TABL16 PO
[2024-03-03] MEDS ORDERED: ERGO500029 (15:21)
[2024-03-03] MEDS ORDERED: FERR325T19 (15:21)
[2024-03-03] MEDS ORDERED: PNV1TABL16 PO (15:21)
[2024-03-03] MEDS ORDERED: MIRA3350 (15:21)
[2024-03-03] MEDS ORDERED: FLUO1TAB (15:21)
[2024-03-03 16:16] LABS: BASO # 0.1 10^3/uL (0.0-0.2); BASO % 0.6 % (0.0-1.0); EOS # 0.2 10^3/uL (0.0-0.5); EOS % 1.6 % (0.0-3.0); HEMATOCRIT 34.5 % (36.0-47.0); HEMOGLOBIN 10.7 g/dl (12.0-15.5); LYMPH # 2.1 10^3/uL (1.5-5.0); LYMPH % 19.6 % (24.0-44.0); MEAN CORPUSCULAR HEMOGLOBIN 25.2 pg (27.0-33.0); MEAN CORPUSCULAR VOLUME 81.2 fl (80.0-96.0); MONO # 0.7 10^3/uL (0.0-0.8); NEUTROPHILS # 7.7 10^3/uL (1.5-8.5); NEUTROPHILS % 71.7 % (36.0-66.0); PLATELET COUNT, AUTOMATED 320 10^3/uL (150-450); RED BLOOD COUNT 4.25 10^6/uL (4.00-5.40); WHITE BLOOD COUNT 10.8 10^3/uL (4.0-10.0)
[2024-03-03 16:41] LABS: BLOOD UREA NITROGEN 6 MG/DL (9-23); CALCIUM LEVEL 8.8 MG/DL (8.5-10.1); CARBON DIOXIDE LEVEL 23 MMOL/L (20-31); CHLORIDE LEVEL 103 MMOL/L (98-107); CREATININE FOR GFR 0.44 MG/DL (0.55-1.30); GLOMERULAR FILTRATION RATE > 60.0 (>60); GLUCOSE, FASTING 97 MG/DL (60-100); POTASSIUM SERUM 3.9 MMOL/L (3.5-5.1); SODIUM LEVEL 135 MMOL/L (136-145)
[2024-03-03 21:43] VITALS: BP 121/66; TEMP 98.4; O2SAT 100
== END 2024-03-03 22:24 | disposition home or self-care (01) ==
LOC: M ED 15:09
DX: R93.5 Abnormal findings on diagnostic imaging of other abdominal regions, including retroperitoneum (principal); Z87.891 Personal history of nicotine dependence; Z88.8 Allergy status to other drugs, medicaments and biological substances; Z79.899 Other long term (current) drug therapy

== ENCOUNTER → 2024-03-03 | Outpatient (CLI) | payer OTHER ==
[~2024-03-03] MED LIST changes: +ERGO500029; +FERR325T19; +FLUO1TAB; +MIRA3350; +PNV1TABL16 PO
== END ==
LOC: M RAD 13:18
PROVIDERS: ATTEND Advanced Practice Midwife
DX: O28.0 Abnormal hematological finding on antenatal screening of mother (principal); O28.3 Abnormal ultrasonic finding on antenatal screening of mother; Z3A.12 12 weeks gestation of pregnancy

== ENCOUNTER → 2024-03-07 | Outpatient (CLI) | payer OTHER ==
[~2024-03-07] MED LIST changes: +ERGO500029; +FERR325T19; -FLUO-365 PO; +FLUO1TAB; +FLUO20CA22 PO; +MIRA3350; +PNV1TABL16 PO
== END ==
LOC: M WHC 12:41
PROVIDERS: ATTEND Obstetrics & Gynecology
DX: O28.0 Abnormal hematological finding on antenatal screening of mother (principal)

== ENCOUNTER → 2024-06-16 | Outpatient (CLI) | payer OTHER ==
[~2024-06-16] MED LIST changes: +FLUO-365 PO; -FLUO20CA22 PO
== END ==
LOC: M WHC 12:10
PROVIDERS: ATTEND Obstetrics & Gynecology
DX: Z36.2 Encounter for other antenatal screening follow-up (principal)

== ENCOUNTER → 2024-06-19 | Outpatient (CLI) | payer OTHER ==
[2024-06-19 18:12] LABS: HEMATOCRIT 31.9 % (36.0-47.0); HEMOGLOBIN 10.8 g/dl (12.0-15.5); MEAN CORPUSCULAR HEMOGLOBIN 32.3 pg (27.0-33.0); MEAN CORPUSCULAR HGB CONC 33.9 g/dl (32.0-36.5); MEAN CORPUSCULAR VOLUME 95.5 fl (80.0-96.0); PLATELET COUNT, AUTOMATED 223 10^3/uL (150-450); RED BLOOD COUNT 3.34 10^6/uL (4.00-5.40); WHITE BLOOD COUNT 12.6 10^3/uL (4.0-10.0)
[2024-06-19 18:31] LABS: GLUCOSE CHALLENGE TEST 1 HOUR 86 MG/DL (LESS THAN 140)
[2024-06-19 19:00] LABS: HIV 1&2 SCREEN NEGATIVE (NEGATIVE)
[2024-06-19 19:08] LABS: HEPATITIS C VIRUS ABY INDEX < 0.02 INDEX (<0.8)
== END ==
LOC: M PLALAB 15:06
PROVIDERS: ATTEND Obstetrics & Gynecology
DX: Z34.92 Encounter for supervision of normal pregnancy, unspecified, second trimester (principal)

== ENCOUNTER → 2024-07-05 | Outpatient (REF) | payer MEDICAID, OTHER ==
[2024-07-05 16:34] LABS: GC DNA AMPLIFICATION NEGATIVE (NEGATIVE)
== END ==
LOC: M SFHCWAGY 14:44
PROVIDERS: ATTEND Obstetrics & Gynecology
DX: Z34.92 Encounter for supervision of normal pregnancy, unspecified, second trimester (principal)

== ENCOUNTER → 2024-08-14 | Outpatient (REF) | payer OTHER ==
[~2024-08-14] MED LIST changes: -DOXY-323 PO; +DOXY-441 PO; -ERGO500029; +ERGO500029 PO; -FERR325T19; +FERR325T19 PO; +FLUO40CA PO; +SERT25TA85 PO
== END ==
LOC: M SFHCWAGY 17:02
PROVIDERS: ATTEND Nurse Practitioner Family
DX: Z36.89 Encounter for other specified antenatal screening (principal); Z3A.36 36 weeks gestation of pregnancy

== ENCOUNTER 2024-09-05 05:23 | Inpatient (IN) | payer OTHER ==
[2024-09-05] VITALS (9 sets, daily range): BP systolic 104–134; BP diastolic 55–74; TEMP 97.2; O2SAT 96–97
[~2024-09-05] VITALS: Ht 149.9 cm; Wt 101.5 kg
[2024-09-05] MEDS ORDERED: HOME MED LIST COMPLETE! XX SCH (05:50)
[2024-09-05] MEDS: LACTATED RINGER'S 1000 ML IV STA (06:11)
[2024-09-05 06:31] LABS: HEMATOCRIT 34.8 % (36.0-47.0); HEMOGLOBIN 11.7 g/dl (12.0-15.5); MEAN CORPUSCULAR HEMOGLOBIN 33.1 pg (27.0-33.0); MEAN CORPUSCULAR HGB CONC 33.6 g/dl (32.0-36.5); MEAN CORPUSCULAR VOLUME 98.3 fl (80.0-96.0); PLATELET COUNT, AUTOMATED 178 10^3/uL (150-450); RED BLOOD COUNT 3.54 10^6/uL (4.00-5.40); WHITE BLOOD COUNT 17.1 10^3/uL (4.0-10.0)
[2024-09-05] MEDS ORDERED: MORPHINE PRES-FREE INJ 10 MG/10 ML VIAL As Ordered ONE (07:11)
[2024-09-05] MEDS ORDERED: ONDANSETRON 4MG 2ML VIAL As Ordered ONE (07:12)
[2024-09-05] MEDS: LR 1,000 ML IV SCH ×2 (07:12→19:00)
[2024-09-05] MEDS: ceFAZolin SOD 2 GM in IV 1 EA IV ONE (07:12)
[2024-09-05] MEDS ORDERED: ACETAMINOPHEN 1000MG/100ML IV BAG As Ordered ONE (07:12)
[2024-09-05] MEDS: BICITRA 30ML SOLN UDC PO ONE (07:13)
[2024-09-05] MEDS ORDERED: KETOROLAC 60MG 2ML VIAL As Ordered ONE (07:14)
[2024-09-05 07:26] LABS: HEPATITIS C VIRUS ABY INDEX 0.02 INDEX (<0.8)
[2024-09-05] MEDS ORDERED: MOM 30ML SUSPENSION UDC PO PRN (07:35)
[2024-09-05] MEDS ORDERED: CALCIUM CARBONATE 500 MG CHEW U/D PO PRN (07:35)
[2024-09-05] MEDS ORDERED: METHYLERGONOVINE MALEATE 0.2MG/ML 1ML VIAL IM PRN (07:35)
[2024-09-05] MEDS ORDERED: PERCOCET 5MG/325MG TAB PO PRN (07:35)
[2024-09-05] MEDS ORDERED: RHOGAM 300MCG (1500IU) INJ IM SCH (07:35)
[2024-09-05] MEDS ORDERED: fentaNYL 100 MCG/2 ML INJECTION IV PRN (08:40)
[2024-09-05] MEDS ORDERED: NALOXONE INJ 0.4MG/1ML VIAL IV PRN ×2 (08:40)
[2024-09-05] MEDS ORDERED: oxyCODONE 5MG TAB PO PRN (08:40)
[2024-09-05] MEDS: SLF 3 ML SYR IV SCH (08:40)
[2024-09-05] MEDS ORDERED: MORPHINE 2 MG/ML 1ML VIAL IV PRN (08:40)
[2024-09-05] MEDS ORDERED: **NOTE PATIENT COMMENT** MISC XX SCH (08:40)
[2024-09-05] MEDS ORDERED: ONDANSETRON 4MG 2ML VIAL IV PRN (08:40)
[2024-09-05] MEDS: PRENATAL VITAMINS CHEWABLE TABLET PO SCH (09:00)
[2024-09-05] MEDS: DOCUSATE SODIUM 100MG CAPSULE PO SCH (09:00)
[2024-09-05] MEDS ORDERED: OXYTOCIN 30UNITS IN 0.9% NaCl 500ML IV BAG As Ordered ONE (09:37)
[2024-09-05] MEDS: OXYTOCIN DRIP 30 UNITS in IV 1 EA IV SCH (09:42)
[2024-09-05] MEDS ORDERED: diphenhydrAMINE 50MG/ML VIAL As Ordered ONE (09:55)
[2024-09-05] MEDS: diphenhydrAMINE 50MG/ML VIAL IV PRN (09:58)
[2024-09-05] MEDS: KETOROLAC 30 MG/ML 1ML VIAL IV SCH (16:21)
[2024-09-05] MEDS: METOCLOPRAMIDE INJ 10MG/2ML VIAL IV PRN (16:27)
[2024-09-05] MEDS: ONDANSETRON 4MG 2ML VIAL IV PRN (18:53)
[2024-09-05] MEDS: SERTRALINE HCL 25 MG TABLET PO SCH (21:00)
[2024-09-06 02:00] VITALS: BP 114/56; O2SAT 98
[2024-09-06 05:51] VITALS: BP 109/65; O2SAT 98
[2024-09-06 07:29] LABS: HEMATOCRIT 29.2 % (36.0-47.0); HEMOGLOBIN 9.8 g/dl (12.0-15.5); MEAN CORPUSCULAR HEMOGLOBIN 33.7 pg (27.0-33.0); MEAN CORPUSCULAR HGB CONC 33.6 g/dl (32.0-36.5); MEAN CORPUSCULAR VOLUME 100.3 fl (80.0-96.0); PLATELET COUNT, AUTOMATED 156 10^3/uL (150-450); RED BLOOD COUNT 2.91 10^6/uL (4.00-5.40); WHITE BLOOD COUNT 15.6 10^3/uL (4.0-10.0)
[2024-09-06 10:00] VITALS: BP 114/78; O2SAT 97
[2024-09-06] MEDS: IBUPROFEN 800 MG TAB PO SCH (10:18)
[2024-09-06] MEDS: PERCOCET 5MG/325MG TAB PO PRN (11:09)
[2024-09-06 13:54] VITALS: BP 134/64; O2SAT 98
[2024-09-06 18:18] VITALS: BP 126/59; O2SAT 98
[2024-09-06 22:00] VITALS: BP 128/62; O2SAT 99
[2024-09-06] MEDS: SIMETHICONE 80MG CHEW TAB PO PRN (22:54)
[2024-09-07 02:00] VITALS: BP 124/58; O2SAT 98
[2024-09-07 06:00] VITALS: BP 129/70; O2SAT 98
[2024-09-07] MEDS ORDERED: MEASLES,MUMPS,RUBELLA VACCINE INJ (MMR-II) SC.IMMUN ONE (09:00)
[2024-09-07 10:00] VITALS: BP 148/70; O2SAT 98
== END 2024-09-07 14:00 | disposition home or self-care (01) | DRG 540 ==
LOC: M LDI 05:23 → M OBS 10:12
PROVIDERS: ADMIT Obstetrics & Gynecology; ATTEND Obstetrics & Gynecology
PROC: 10D00Z1 Extraction of Products of Conception, Low, Open Approach (ICD-10-PCS; principal; 2024-09-05 07:30)
DX: O34.211 Maternal care for low transverse scar from previous cesarean delivery (principal); Z37.0 Single live birth; Z3A.39 39 weeks gestation of pregnancy

== ENCOUNTER → 2025-03-08 | Outpatient (REF) | payer OTHER ==
[2025-03-08 13:37] LABS: BASO # 0.1 10^3/uL (0.0-0.2); EOS # 0.2 10^3/uL (0.0-0.5); EOS % 2.1 % (0.0-3.0); HEMATOCRIT 35.5 % (36.0-47.0); HEMOGLOBIN 12.2 g/dl (12.0-15.5); LYMPH # 2.3 10^3/uL (1.5-5.0); MEAN CORPUSCULAR HEMOGLOBIN 32.1 pg (27.0-33.0); MEAN CORPUSCULAR HGB CONC 34.4 g/dl (32.0-36.5); MEAN CORPUSCULAR VOLUME 93.4 fl (80.0-96.0); MONO # 0.5 10^3/uL (0.0-0.8); MONO % 7.4 % (2.0-8.0); NEUTROPHILS # 4.2 10^3/uL (1.5-8.5); NEUTROPHILS % 57.2 % (36.0-66.0); PLATELET COUNT, AUTOMATED 308 10^3/uL (150-450); WHITE BLOOD COUNT 7.3 10^3/uL (4.0-10.0)
[2025-03-08 13:44] LABS: FERRITIN 12.7 NG/ML (7.3-270.7); THYROID STIMULATING HORMONE 1.652 uIU/ML (0.55-4.78)
[2025-03-08 13:46] LABS: TOTAL 25(OH) VITAMIN D 46.1 NG/ML (20.0-100.0)
[2025-03-08 13:49] LABS: IRON (FE) 47 UG/DL (50-170)
[2025-03-08 13:50] LABS: ALBUMIN 3.4 G/DL (3.2-5.2); ALKALINE PHOSPHATASE 48 U/L (35-104); ALT/SGPT 18 U/L (7.0-40); AST/SGOT 13 U/L (<34); BILIRUBIN,TOTAL 0.3 MG/DL (0.3-1.2); BLOOD UREA NITROGEN 10 MG/DL (9-23); CALCIUM LEVEL 8.5 MG/DL (8.5-10.1); CARBON DIOXIDE LEVEL 25 MMOL/L (20-31); CHLORIDE LEVEL 107 MMOL/L (98-107); CHOLESTEROL LEVEL 233 MG/DL (<200); CHOLESTEROL RISK RATIO 5.24 (<5); CREATININE FOR GFR 0.51 MG/DL (0.55-1.30); GLOMERULAR FILTRATION RATE > 90.0 (>60); GLUCOSE, FASTING 90 MG/DL (60-100); HDL CHOLESTEROL 44.4 MG/DL (>40); LDL CHOLESTEROL 163.4 MG/DL (<100); MAGNESIUM LEVEL 1.7 MG/DL (1.8-2.4); NON-HDL-C 188.6 MG/DL; PERCENT SATURATION 13.5 % (13.2-45.0); POTASSIUM SERUM 4.2 MMOL/L (3.5-5.1); SODIUM LEVEL 139 MMOL/L (136-145); TOTAL IRON BINDING CAPACITY 347 UG/DL (250-425); TOTAL PROTEIN 6.5 G/DL (5.7-8.2); TRIGLYCERIDES LEVEL 126 MG/DL (<150)
[2025-03-08 14:43] LABS: HEMOGLOBIN A1c 4.8 % (4.0-6.0)
== END ==
LOC: M LAB REF 12:10
PROVIDERS: ATTEND Nurse Practitioner Family
DX: E66.9 Obesity, unspecified (principal); E55.9 Vitamin D deficiency, unspecified; D50.9 Iron deficiency anemia, unspecified

== ENCOUNTER → 2025-06-05 | Outpatient (REF) | payer OTHER ==
[2025-06-05 16:52] LABS: CHOLESTEROL LEVEL 224.0 MG/DL (<200); CHOLESTEROL RISK RATIO 5.34 (<5); LDL CHOLESTEROL 152.3 MG/DL (<100); NON-HDL-C 182.1 MG/DL; TRIGLYCERIDES LEVEL 149.0 MG/DL (<150)
== END ==
LOC: M LAB REF 13:17
PROVIDERS: ATTEND Nurse Practitioner Family
DX: E78.2 Mixed hyperlipidemia (principal)

== ENCOUNTER → 2025-09-27 | Outpatient (CLI) | payer OTHER ==
[2025-09-27 15:21] LABS: PLATELET COUNT, AUTOMATED 317 10^3/uL (150-450)
[2025-09-27 15:51] LABS: FREE T4 1.09 NG/DL (0.89-1.76)
== END ==
LOC: M PLALAB 14:02
PROVIDERS: ATTEND Obstetrics & Gynecology
DX: N93.9 Abnormal uterine and vaginal bleeding, unspecified (principal)

== ENCOUNTER → 2025-09-27 | Outpatient (CLI) | payer OTHER | LOC: M WHC 13:05 | PROVIDERS: ATTEND Obstetrics & Gynecology | DX: N93.9 Abnormal uterine and vaginal bleeding, unspecified (principal) ==